=== PATIENT | male | born 1960 | race Caucasian/White ===

== ENCOUNTER 2021-01-25 16:05 | Emergency (ER) | payer OTHER, SELFPAY ==
--- NOTE | ~2021-01-25 | XR_ITS ---
EXAMINATION: XR foot LT min 3V DATE: 01/25/2021 16:37 INDICATION: Lateral ankle pain. TECHNIQUE: 4 views of left foot were obtained. COMPARISON: None. FINDINGS: There is mild hallux valgus. No acute fracture. Bohler's angle is small suggesting an old h ealed fracture of calcaneus. There is mild osteoarthritis of first metatarsophalangeal joint and some the interphalangeal joints. IMPRESSION: 1. Mild polyarticular osteoarthritis. 2. Mild hallux valgus. Reviewed, dictated and finalized at location A.
--- NOTE | ~2021-01-25 | XR_ITS ---
EXAMINATION: XR ankle LT min 3V DATE: 01/25/2021 16:37 INDICATION: Left ankle pain. TECHNIQUE: 4 views of left ankle were obtained. COMPARISON: None. FINDINGS: Bone alignment is normal. Bohler's angle is small suggesting an old healed fracture of calc aneus. Joint spaces are normal. There is lateral ankle soft tissue swelling. IMPRESSION: 1. No acute fracture. Reviewed, dictated and finalized at location A. IMPRESSION: 1. No acute fracture.
--- NOTE | 2021-01-25 16:11 | ED.LOWEXIN ---
HPI - Extremity Injury (Lower) General Chief Complaint: Extremity Injury, Lower Stated Complaint: Left Foot Injury Time Seen by Provider: 01/25/21 16:11 Source: patient and RN notes reviewed History of Present Illness HPI Narrative: Patient is a 60-year-old male who presents the urgent care with complaints of left ankle pain, swelling and bruising. Patient states that he noticed it yesterday and went to the company doctor at work today who told him that he needed x-rays. Patient denies of any trauma, injury or fall. States that he does wear steel toed boots at work. Denies any use of [id number] medication. No other acute complaints. No acute distress noted. Patient aware of the plan of care. Some parts of this dictation were generated by voice recognition software and may contain typographical and/or grammatical inaccuracies. Related Data Home Medications Medication Instructions Recorded Confirmed albuterol sulfate INHALATION 01/25/21 felodipine mg PO 01/25/21 lisinopril 01/25/21 nebivolol [Bystolic] mg 01/25/21 pravastatin 01/25/21 tiotropium bromide [Spiriva with INHALATION 01/25/21 HandiHaler] Allergies Allergy/AdvReac Type Severity Reaction Status Date / Time No Known Allergies Allergy Verified 01/25/21 16:31 Review of Systems Review of Systems: CONSTITUTIONAL: Denies fever, chills, or sweats. EYES: Denies visual changes, redness, or discharge. ENT: Denies rhinorrhea, congestion, sore throat, or otalgia. CARDIOVASCULAR: Denies chest pain, palpitations, or edema. RESPIRATORY: Denies cough or dyspnea. GASTROINTESTINAL: Denies abdominal pain, nausea, vomiting, or diarrhea. GENITOURINARY: Denies dysuria or hematuria. SKIN: Denies rash or itching. MUSCULOSKELETAL: Reports of left ankle and foot bruising/pain NEUROLOGIC: Denies headache, numbness, or weakness. All other systems reviewed are negative, except as documented in HPI. PMFSH Comments At the time of my signature, I reviewed and agree with the nursing past medical, surgical, social, and family history. There is no relevant family history pertinent to the patient complaint. Exam Narrative: GENERAL: This is a well-nourished, well-developed patient, in no apparent distress. HEAD: normocephalic, atraumatic. EYES: PERRL. Sclera clear/white. Vision is grossly intact. EARS: External ears normal NOSE: External nose normal with no obvious nasal discharge, nares without redness, no rhinorrhea. THROAT: Mucous membranes moist NECK: Neck supple CARDIOVASCULAR: Regular rate and rhythm without murmurs, gallops, or rubs. RESPIRATORY: Clear to auscultation. Breath sounds equal bilaterally. No wheezes, rales, or rhonchi. SKIN: warm, intact with no suspicious lesions or rash, good texture and turgor. NEURO: awake, alert, and oriented to person, place and time. There were no obvious focal neurologic abnormalities. EXTREMITIES: Mild to moderate edema noted to both the lateral and medial aspects of the left malleolus with significant ecchymosis extending into the lateral left foot. Positive strong left pedal pulse with capillary refill less than 2 seconds. Pain exacerbated with flexion exercises and weightbearing Course Vital Signs Vital signs: Vital Signs Temperature 98.6 F 01/25/21 16:22 Pulse Rate 77 01/25/21 16:22 Respiratory Rate 16 01/25/21 16:22 Blood Pressure 139/84 01/25/21 16:22 Pulse Oximetry 99 01/25/21 16:22 Temperature 98.6 F 01/25/21 16:22 Pulse Rate 77 01/25/21 16:22 Respiratory Rate 16 01/25/21 16:22 Blood Pressure 139/84 01/25/21 16:22 Pulse Oximetry 99 01/25/21 16:22 Reviewed MDM - Extremity Injury (Lower) MDM Narrative Medical decision making narrative: Reviewed x-ray results with the patient. He is aware that x-ray was negative for any acute abnormality or fracture. Advised the patient to wear supportive Baudilio wrap or ankle brace while working. It is likely that you twisted the ankle or
[2021-01-25 16:22] VITALS: BP 139/84; PULSE 77; RESP 16; TEMP 37; O2SAT 99
--- NOTE | 2021-01-25 17:01 | PC.NURSE ---
PT DECLINED ICE AND WHEELCHAIR FOR COMFORT
== END 2021-01-25 16:55 | disposition home or self-care (01) ==
PROVIDERS: Emergency Provider Nurse Practitioner Family; PCP Internal Medicine
DX: S93.402A Sprain of unspecified ligament of left ankle, initial encounter (principal); S96.912A Strain of unspecified muscle and tendon at ankle and foot level, left foot, initial encounter; X58.XXXA Exposure to other specified factors, initial encounter; E78.00 Pure hypercholesterolemia, unspecified; I10 Essential (primary) hypertension; J44.9 Chronic obstructive pulmonary disease, unspecified
CPT/HCPCS: 73610; 73630; 99213; G0463